=== PATIENT | male | born 1995 | race Caucasian/White ===

== ENCOUNTER 2017-12-11 21:56 | Emergency (ER) | payer OTHER ==
[2017-12-11] MEDS ORDERED: IBUPROFEN 600 MG TAB PO (22:15)
[2017-12-11] MEDS ORDERED: ADACEL/BOOSTRIX VACCINE (DIPHTH/PERTUSS/ACELL/TETANUS)0.5ML SYR (90715) IM (22:15)
[2017-12-11] MEDS: CLINDAMYCIN 150 MG CAP PO (22:40)
[2017-12-11] MEDS: ACETAMINOPHEN 325 MG TAB PO (22:40)
[2017-12-11] MEDS: NEOSPORIN OINT 0.9 GM PKT (FLOOR STOCK) TOP (22:45)
[2017-12-11] MEDS ORDERED: NEOSPORIN OINT 0.9 GM PKT (FLOOR STOCK) As Ordered (22:45)
== END 2017-12-11 23:03 | disposition home or self-care (01) ==
LOC: M ED 21:56
DX: S61.431A Puncture wound without foreign body of right hand, initial encounter (principal); W45.0XXA Nail entering through skin, initial encounter; Y92.018 Other place in single-family (private) house as the place of occurrence of the external cause; Z91.010 Allergy to peanuts; Z88.0 Allergy status to penicillin
CPT/HCPCS: 73130

== ENCOUNTER 2019-02-06 12:34 | Emergency (ER) | payer OTHER ==
[~2019-02-06] VITALS: Ht 172.7 cm; Wt 68.2 kg
[~2019-02-06 12:34] MED LIST: CLEO300C2 PO
[2019-02-06] MEDS ORDERED: NS 1,000 ML IV SCH (12:48)
[2019-02-06] MEDS ORDERED: diphenhydrAMINE INJ 50MG/ML VIAL (J1200) IV ONE (13:00)
[2019-02-06] MEDS ORDERED: FAMOTIDINE INJ 20MG/2ML VIAL (S0028) IVP ONE (13:00)
[2019-02-06] MEDS ORDERED: methylPREDNISolone INJ 125 MG/2 ML VIAL (J2930) IV ONE (13:00)
[2019-02-06] MEDS ORDERED: PRED20TA PO (15:24)
[2019-02-06] MEDS ORDERED: DIPH50CA PO (15:25)
[2019-02-06 15:37] VITALS: BP 128/64
== END 2019-02-06 15:43 | disposition home or self-care (01) ==
LOC: M ED 12:34
DX: L29.9 Pruritus, unspecified (principal); Z91.010 Allergy to peanuts; Z88.0 Allergy status to penicillin; F17.210 Nicotine dependence, cigarettes, uncomplicated
CPT/HCPCS: 93041; 94760; 96361; 96374; 96375; 99285; J1200; J2930